=== PATIENT | female | born 1970 | race African-American/Black ===

== ENCOUNTER 2018-05-21 16:28 | Emergency (ER) | payer MEDICAID ==
[~2018-05-21] VITALS: Ht 167.6 cm; Wt 100.0 kg
[2018-05-21 23:55] LABS: BASOPHILS % 1.5 % (0.0-2.0); EOSINOPHILS % 3.1 % (0.0-5.0); HEMATOCRIT. 37.2 % (36.0-48.0); HEMOGLOBIN. 12.4 g/dL (12.0-16.0); LYMPHOCYTES % 27.7 % (20.0-50.0); MEAN CORPUSCULAR HEMOGLOBIN 28.8 pg (28.0-32.0); MEAN CORPUSCULAR VOLUME 86.4 fL (81.0-99.0); MEAN PLATELET VOLUME 9.1 fl (7.4-10.4); MONOCYTES % 7.5 % (2.0-8.0); NEUTROPHILS % 60.2 % (40.0-76.0); PLATELET 261 x1000/uL (130-400); RED CELL DISTRIBUTION WIDTH 13.5 % (11.6-14.6)
[2018-05-22 00:01] LABS: CHLORIDE 102 mEq/L (98-107)
[2018-05-22] MEDS ORDERED: KETOROLAC 15MG/ML VIAL IV ONE (01:00)
[2018-05-22 01:20] VITALS: BP 135/75
== END 2018-05-22 02:29 | disposition home or self-care (01) ==
LOC: ER 16:28
DX: M94.0 Chondrocostal junction syndrome [Tietze] (principal); I10 Essential (primary) hypertension; J45.909 Unspecified asthma, uncomplicated
CPT/HCPCS: 36415; 71045; 80053; 84484; 85025; 85379; 93005; 96374; 99284; J1885